=== PATIENT | female | born 1985 | race American Indian/Alaskan Native ===

== ENCOUNTER 2019-02-27 16:26 | Emergency (ER) | payer SELFPAY ==
[2019-02-27 16:36] VITALS: BP 111/71
--- NOTE | 2019-02-27 17:18 | Emergency Department Report ---
Blank Doc - Documentation Documentation: 33-year-old female that presents with pelvic pain and vaginal bleeding. This initial assessment/diagnostic orders/clinical plan/treatment(s) is/are subject to change based on patient's health status, clinical progression and re- assessment by fellow clinical providers in the ED. Further treatment and workup at subsequent clinical providers discretion. Patient/guardians urged not to elope from the ED as their condition may be serious if not clinically assessed and managed. Initial orders include: 1- Patient sent to [facility] for further evaluation and treatment 2- labs 3- UA
== END 2019-02-27 21:58 | disposition left against medical advice (07) ==
LOC: ED 16:26
DX: R10.2 Pelvic and perineal pain (principal); N93.9 Abnormal uterine and vaginal bleeding, unspecified; Z53.21 Procedure and treatment not carried out due to patient leaving prior to being seen by health care provider
CPT/HCPCS: 99281